=== PATIENT | female | born 1990 | race Caucasian/White ===

== ENCOUNTER 2016-11-17 21:56 | Emergency (ER) | payer BC ==
[2016-11-17 22:25] LABS: Urine Bilirubin Negative (NEGATIVE); Urine Ketone Negative (NEGATIVE); Urine Nitrite Negative (NEGATIVE); Urine Protein Negative (NEGATIVE); Urine Specific Gravity <=1.005 SP.GR. (1.005-1.010); Urine Urobilinogen Normal (NORMAL); Urine pH 5.5 pH (5.0-7.0)
--- NOTE | 2016-11-17 22:48 | ERNOTE ---
ER Female HPI Date of Service: 11/17/16 Stated Complaint: BODY ACHES. UTI Source: patient, family, other - patient reports generalized muscle aches. Reports has had similar symptoms previously found to be a UTI. Patient has no dysuria no hematuria no vaginal discharge. Patient 0 para 0 with last menstrual period 2 weeks ago. Patient denies any fever chills. She denies any changes in her bowels or bladder. She denies cough. She has no known sick contacts. She has not camped out in remote location nor noted rash or tick bites. As mentioned no known sick contacts. Exam Limitations: no limitations Immunizations: IMMUNIZATION HX Immunizations Up to Date Yes Allergies/Adverse Reactions: Allergies codeine [Codeine] Allergy (Mild, Verified 12/25/13 09:43) Home Medications: HOME MEDICATIONS Cetirizine HCl [Zyrtec] 10 mg PO DAILY 04/27/12 [Last Taken 04/26/12 17:00] Ethinyl Estradiol/Drospirenone [Sandra 28 Tablet] 1 each PO DAILY 04/27/12 [ Last Taken 04/26/12 17:00] Montelukast Sodium [Singulair] 10 mg PO DAILY 04/27/12 [Last Taken 04/26/12 17: 00] Thyroid,Pork [[place] Thyroid] 15 mg PO DAILY 04/27/12 [Last Taken 04/26/12 17:00 ] Cranberry Fruit Extract [Cranberry] 300 mg PO DAILY 11/17/16 [Last Taken Unknown ] Cyanocobalamin (Vitamin B-12) [Vitamin B12] 2,500 mcg PO DAILY 11/17/16 [Last Taken Unknown] - History of Present Illness Date (Duration): 11/17/16 Time (Timing): 20:30 Timing: Present: intermittent Quality: Present: mild Onset Location: Present: other - please see above Radiation: Present: none Activities at Onset: Present: none Sexual [place] History: Present: less than 2 months ago, single partner Modifying Factors - (Improves): Present: other - nothing makes condition better or worse. Review of Systems - Review of Systems Constitutional: Present: no symptoms reported EYE: Present: no symptoms reported ENT: Present: no symptoms reported Respiratory: Present: no symptoms reported Cardiology: Present: no symptoms reported Gastrointestinal/Abdominal: Present: no symptoms reported Genitourinary: Present: no symptoms reported Musculoskeletal: Present: muscle pain Skin: Present: no symptoms reported Neurological: Present: no symptoms reported Endocrine: Present: no symptoms reported Hematologic/Lymphatic: Present: no symptoms reported - Patient's Past Medical History Patient History - Medical: No pertinent hx, Hypothyroidism Patient History - Cardiac/Respiratory: Asthma Patient History - Cancer: No Hx of Cancer Patient History - Surgical Procedures: T & A Patient History - Other: None LMP (females 10-50): last week - Social History Living Situations: spouse Abuse History: No History of abuse Psych History: No pertinent hx Smoking Status: Never smoker Do you dip or chew tobacco: No Alcohol Use: occasionally Drug Use: none - Immunizations Immunizations Up to Date: Yes Physical Exam - Physical Exam General Appearance: Present: wd/wn, alert, no apparent distress Eye Exam: Normal inspection: bilateral - entire exam of eyes normal., PERRL: bilateral, EOMI: bilateral Ears, Nose, Throat: Present: normal ENT inspection, normal pharynx Neck: Present: nontender, thyromegaly, other - patient with generalized thyroidmegaly. No palpable nodules. No tenderness. Patient has had TSH checked within the last few months without recent changes to her thyroid medication dose. Respiratory: Present: no respiratory distress, normal breath sounds, no accessory muscle use, chest nontender, lungs clear Cardiovascular/Chest: Present: regular rate, rhythm, no murmur, normal peripheral pulses Peripheral Pulses: N=norm/S=strong/W=weak/B=bound/A=absent: Carotid (R): Normal , Carotid (L): Normal, Radial (R): Normal, Radial (L): Normal, Femoral (R): Normal, Femoral (L): Normal, Dorsalis-pedis (R): Normal, Dorsalis-pedis (L): Normal Gastrointestinal/Abdominal: Present: normal bowel sounds, nontender, nondistended, no organomegaly Rectal Exam: Present: deferred Back Exam: Present: normal inspection, normal range of motion, no CVA tenderness , no vertebral tenderness Extremity Exam: Present: normal inspection, non-tender, normal range of motion, no edema, other - despite report of generalized muscle aches does not aggravate muscles to be palpated. No muscle rigidity or spasm operated. Full range of motion all joints. Neurological Exam: Present: alert, oriented, normal mood/affect, no motor/ sensory deficits DTR: N=norm/NB=norm/brisk/A=abs/DD=dull/dimin/HC=hyperactive: Bicep (R): Normal , Bicep (L): Normal, Tricep (R): Normal, Tricep (L): Normal, Knee (R): Normal, Knee (L): Normal Skin Exam: Present: normal color, warm/dry, other - no sign of rash as noted. No sign of insect vector present. Lymphatic Exam: Present: no adenopathy ED Progress - Results and Orders Patient's Lab Results:: I have reviewed the patient's lab results. - Vital Signs Patient's Vital Signs:: I have reviewed the patient's vital signs. Vital Signs: Vital Signs 11/17/16 22:01 Temperature 36.8 C Pulse Rate 88 Respiratory 16 Rate Blood Pressure 143/97 O2 Sat by Pulse 100 Oximetry - Progress/Reassessment Chief Complaint: Genitourinary Problem Progress:: Repeat exam at discharge Departure Clinical Impression: Viral syndrome - Departure Disposition: Home self-care Condition: Good Additional Instructions: Suspect you have mild viral syndrome. No concerning findings on exam or urinalysis. Recommend follow-up with your primary provider if not markedly better the next 5-7 days. Referrals: Suad Taylor CNP [Primary Care Provider] -
[2016-11-17 23:01] LABS: Urine Appearance Clear; Urine Blood 5 /ul (NEGATIVE); Urine Color Pale Yellow
[2016-11-17 23:02] LABS: Urine Bacteria TRACE; Urine RBC 0-5 /hpf (0-5); Urine WBC None Seen /hpf (0-5)
[2016-11-17 23:12] VITALS: BP 129/71
== END 2016-11-17 23:20 | disposition home or self-care (01) ==
LOC: ER 21:56
DX: M79.1 Myalgia (principal); B97.89 Other viral agents as the cause of diseases classified elsewhere

== ENCOUNTER 2017-02-04 13:25 | Emergency (ER) | payer BC ==
[2017-02-04] MEDS ORDERED: DIPHTH,PERTUSS(ACELL),TET VAC 0.5 ML VIAL IM ONE ×2 (13:58→14:09)
[2017-02-04 14:57] VITALS: BP 120/62
--- NOTE | 2017-02-04 15:04 | ERNOTE ---
Medical Problem HPI - Narrative Date of Service: 02/04/17 - General Chief Complaint: Laceration Time Seen by Provider: 02/04/17 13:59 Source: patient, family, RN notes reviewed Exam Limitations: no limitations - Immun/Allergies/Home Medications Immunizations: IMMUNIZATION HX Immunizations Up to Date No History of Influenza Vaccine No Hx Pneumococcal Vaccination No Allergies/Adverse Reactions: Allergies codeine [Codeine] Allergy (Mild, Verified 02/04/17 13:49) Home Medications: HOME MEDICATIONS Cetirizine HCl [Zyrtec] 10 mg PO DAILY 04/27/12 [Last Taken 04/26/12 17:00] Ethinyl Estradiol/Drospirenone [Sandra 28 Tablet] 1 each PO DAILY 04/27/12 [ Last Taken 04/26/12 17:00] Montelukast Sodium [Singulair] 10 mg PO DAILY 04/27/12 [Last Taken 04/26/12 17: 00] Thyroid,Pork [[place] Thyroid] 15 mg PO DAILY 04/27/12 [Last Taken 04/26/12 17:00 ] Cranberry Fruit Extract [Cranberry] 300 mg PO DAILY 11/17/16 [Last Taken Unknown ] Cyanocobalamin (Vitamin B-12) [Vitamin B12] 2,500 mcg PO DAILY 11/17/16 [Last Taken Unknown] - History of Present History Narrative: Donna is a 26-year-old female who presents to the emergency department for a laceration on her right index finger. 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 She is unsure of when her last tetanus vaccination was given. Review of Systems - Review of Systems Constitutional: Absent: recent illness, fever, malaise EYE: Present: no symptoms reported ENT: Present: no symptoms reported Respiratory: Present: no symptoms reported Cardiology: Present: no symptoms reported Gastrointestinal/Abdominal: Present: no symptoms reported Genitourinary: Present: no symptoms reported Musculoskeletal: Absent: joint pain, joint swelling Skin: Absent: lesions, lumps, change in color Neurological: Absent: weakness, numbness, tingling Endocrine: Present: no symptoms reported Hematologic/Lymphatic: Absent: easy bruising, easy bleeding Psych: Present: no symptoms reported - Patient's Past Medical History Patient History - Medical: Hypothyroidism Patient History - Cardiac/Respiratory: Asthma Patient History - Cancer: No Hx of Cancer Patient History - Surgical Procedures: T & A Patient History - Other: None LMP (females 10-50): last week - Social History Living Situations: home Abuse History: No History of abuse Psych History: No pertinent hx Smoking Status: Never smoker Alcohol Use: occasionally Drug Use: none - Immunizations Immunizations Up to Date: No Hx Pneumococcal Vaccination: No History of Influenza Vaccine: No Physical Exam - Physical Exam General Appearance: Present: wd/wn, alert, no apparent distress, anxious Head Exam: Present: normal inspection Respiratory: Present: no respiratory distress, no accessory muscle use Cardiovascular/Chest: Present: normal peripheral pulses Extremity Exam: Present: normal except - - Right index finger laceration, 1 cm flap, not able to be sutured, normal range of motion, no edema Neurological Exam: Present: alert, oriented, normal mood/affect, no motor/ sensory deficits Skin Exam: Present: normal color, warm/dry ED Progress - Vital Signs Patient's Vital Signs:: I have reviewed the patient's vital signs. Vital Signs: Vital Signs 02/04/17 02/04/17 13:45 14:56 Temperature 37.0 C 37.0 C Pulse Rate 79 74 Respiratory 15 16 Rate Blood Pressure 123/67 120/62 O2 Sat by Pulse 100 100 Oximetry - Progress/Reassessment Chief Complaint: Laceration Progress:: Improved Departure - Departure Clinical Impression: Finger laceration Qualifiers: Encounter type: initial encounter Finger: index finger Damage to nail status: without damage Foreign body presence: without foreign body Laterality: right Qualified Code(s): S61.210A - Laceration without foreign body of right index finger without damage to nail, initial encounter Disposition: Home self-care Condition: Good Instructions: Tissue Adhesive Wound Care
== END 2017-02-04 15:07 | disposition home or self-care (01) ==
LOC: ER 13:25
DX: S61.210A Laceration without foreign body of right index finger without damage to nail, initial encounter (principal); E03.9 Hypothyroidism, unspecified; J45.909 Unspecified asthma, uncomplicated; Z23 Encounter for immunization; W27.8XXA Contact with other nonpowered hand tool, initial encounter; Y93.H9 Activity, other involving exterior property and land maintenance, building and construction; Y92.79 Other farm location as the place of occurrence of the external cause